=== PATIENT | female | born 1995 | race Caucasian/White ===

== ENCOUNTER 2019-01-20 07:28 | Emergency (ER) | payer OTHER ==
[~2019-01-20] VITALS: Ht 154.9 cm; Wt 98.0 kg
[2019-01-20 07:31] VITALS: BP 116/61; PULSE 68; RESP 16; Ht 154.9 cm; Wt 98.0 kg
[2019-01-20] MEDS ORDERED: KETOROLAC 60 MG INJ IM STA (08:12)
--- NOTE | 2019-01-20 08:22 | ERD ---
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 States that she is currently on her. States that she normally gets pelvic pain during her period but never this intense. She has been taking ibuprofen 600 mg which normally resolves the pain but it has not been effective this time. Last dose was 9:30 PM. She is requesting an ultrasound. Denies any fevers, dysuria, hematuria, vaginal discharge, flank pain, possibility of . Denies allergies. Denies medical problems. ROS All systems reviewed and are negative except as per history of present illness. Medications Home Meds Active Scripts Hydrocodone/Acetaminophen (Winthrop 5-325 Tablet) 1 Each Tablet, 1 TAB PO Q6H PRN for PAIN, #10 TAB Prov:LUBAMORRISMUMTAZ 01/20/19 Ibuprofen* (Motrin*) 600 Mg Tab, 600 MG PO Q6 for dysmenorrhia, #30 TAB Prov:MUMTAZ MORRIS 01/20/19 Allergies Allergies: Coded Allergies: No Known Allergy (Unverified , 01/20/19) PMhx/Soc Medical and Surgical Hx: pt denies Medical Hx, pt denies Surgical Hx Hx Alcohol Use: No Hx Substance Use: No Hx Tobacco Use: No Smoking Status: Never smoker FmHx Family History: No diabetes, No coronary disease, No other Physical Exam Vitals Vital Signs Date Temp Pulse Resp B/P (MAP) Pulse Ox O2 O2 Flow FiO2 Time Delivery Rate 01/20/19 97.8 68 16 116/61 98 07:31 (79) Physical Exam Const: No acute distress Head: Atraumatic Eyes: Normal Conjunctiva ENT: Normal External Ears, Nose and Mouth. Neck: Full range of motion. No meningismus. Resp: Clear to auscultation bilaterally Cardio: Regular rate and rhythm, no murmurs Abd: Soft, non tender, non distended. Normal bowel sounds. Moderate suprapub ic tenderness without guarding or rigidity. Negative Oates's. Negative McBurney's. Skin: No petechiae or rashes Back: No midline or flank tenderness Ext: No cyanosis, or edema Neur: Awake and alert Psych: Normal Mood and Affect Result Diagram: 01/20/19818 Results 24 hrs Laboratory Tests Test 01/20/19 08:18 01/20/19 08:19 POC Beta HCG, Qualitative NEGATIVE White Blood Count 6.2 10^3/ul Red Blood Count 4.02 10^6/ul Hemoglobin 12.4 g/dl Hematocrit 37.4 % Mean Corpuscular Volume 93.0 fl Mean Corpuscular Hemoglobin 30.8 pg Mean Corpuscular Hemoglobin Concent 33.2 g/dl Red Cell Distribution Width 13.2 % Platelet Count 265 10^3/UL Mean Platelet Volume 10.7 fl Immature Granulocytes % 0.300 % Neutrophils % 56.9 % Lymphocytes % 35.1 % Monocytes % 5.3 % Eosinophils % 1.4 % Basophils % 1.0 % Nucleated Red Blood Cells % 0.0 /100WBC Immature Granulocytes # 0.020 10^3/ul Neutrophils # 3.6 10^3/ul Lymphocytes # 2.2 10^3/ul Monocytes # 0.3 10^3/ul Eosinophils # 0.1 10^3/ul Basophils # 0.1 10^3/ul Nucleated Red Blood Cells # 0.0 10^3/ul Urine Color RED Urine Clarity CLOUDY Urine pH 6.0 Urine Specific [place] 1.028 Urine Ketones NEGATIVE mg/dL Urine Nitrite NEGATIVE mg/dL Urine Bilirubin NEGATIVE mg/dL Urine Urobilinogen NEGATIVE mg/dL Urine Leukocyte Esterase TRACE Asher/ul Urine Microscopic RBC > 182 /HPF Urine Microscopic WBC 110 /HPF Urine Squamous Epithelial Cells FEW /HPF Urine Bacteria FEW /HPF Urine Mucus FEW /HPF Urine Hemoglobin 3+ mg/dL Urine Glucose NEGATIVE mg/dL Urine Total Protein 2+ mg/dl Current Medications Medications Dose Sig/Ruben Start Time Status Last (Trade) Ordered Route PRN Stop Time Admin Dose Reason Admin Ketorolac 60 mg ONCE STAT 01/20/19 DC 01/20/19 Tromethamine IM 08:12 01/20/19 08:29 (Toradol) 08:13 Oxycodone/ 1 tab ONCE ONCE 01/20/19 DC 01/20/19 Acetaminophen PO 08:30 01/20/19 08:29 (Percocet 08:31 (5)) Procedures/MDM MDM: Ultrasound was performed showed small cyst. I doubt this is what is contributing to her symptoms. CBC is within normal limits therefore I have low suspicion for any kind of symptomatic anemia. Patient has history of dysmenorrhea and I suspect this is causing her symptoms. Patient given Rx for ibuprofen as well as [place]rop for breakthrough pain. At time of discharge patient states that she felt much better. I have low suspicion for appendicitis, PID, Parisa cystitis, pyelonephritis, or any other emergent condition. Patient discharged with strict ER precautions. Patient advised to follow up with PMD. A ll questions answered at discharge. Departure Diagnosis: Primary Impression: Dysmenorrhea Condition: Stable MUMTAZ MORRIS January 20, 2019 08:22
[2019-01-20] MEDS ORDERED: OXYCODONE/ACETAMINOPHEN (5/325) TAB PO ONE (08:30)
[2019-01-20] MEDS ORDERED: IBUP-1542 PO (09:18)
[2019-01-20] MEDS ORDERED: HYDR-4011 PO (09:21)
== END 2019-01-20 09:54 | disposition home or self-care (01) ==
LOC: FTE 07:28
DX: N94.6 Dysmenorrhea, unspecified (principal)
CPT/HCPCS: 76830; 76856; 81001; 81025; 85025; 87086; J1885; Z7610; 96372